=== PATIENT | male | born 1965 | race Caucasian/White ===

== ENCOUNTER 2017-05-04 19:19 | Emergency (ER) | payer SELFPAY ==
[2017-05-04 19:38] VITALS: RESP 18
[2017-05-04] MEDS ORDERED: TROPICAMIDE 0.5% LEFTEYE ONE (19:51)
--- NOTE | 2017-05-04 19:55 | EDPHY ---
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 Patient states he did not have a loss of vision but everything from the mid point of seemed distorted. Does not have a history of the same. He has had what he is status were migraine orders in the past or not similar to this. Never been diagnosed with migraine headaches. No nausea or vomiting. No trauma. Patient states he feels it is improving. No pain. Patient is normal in his lower visual field. ROS: 10 point Review of Systems is negative except as noted in the HPI. PMH: Ocular melanoma Social History: No smoking, no alcohol, occasional marijuana Family History: non-contributory Physical Exam: Eye Exam Visual Acuity: 20/20 left eye EOM: Intact Visual Lee: Intact OU, he has able to differentiate did number fingers in all visual lee Pupil: Equal, round and reactive to light and accomodation OU External: Lids, lashes and margins normal OU Fundoscopy; Normal OU - Personal History Current Tetanus/Diphtheria Vaccine: Unsure Current Tetanus Diphtheria and Acellular Pertussis (TDAP): Unsure - Medical/Surgical History Hx Asthma: No Hx Chronic Respiratory Disease: No Hx Diabetes: No Hx Cardiac Disease: No Hx Renal Disease: No Hx Cirrhosis: No Hx Alcoholism: No Hx HIV/AIDS: No Hx Splenectomy or Spleen Trauma: No 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 Nicholas Carlin, ophthalmology. He agrees that history and exam findings are not consistent with retinal detachment. Given that the patient's symptoms are improving and that he still has vision although distorted in that eye is no indication for an emergency treatment. He is suggest the patient be discharged home. If he has improved in the morning he will follow up in the office in several days. If his vision changes or he is still having symptoms tomorrow patient is to call Dr. Carlin directly and they will arrange to see him in the office. - Data Points Medications Given: Discontinued Medications Tropicamide (Mydriacyl 0.5%) 1 drops LEFTEYE ONCE ONE Stop: 05/04/17 19:52 Last Admin: 05/04/17 19:53 Dose: 1 btl Departure - Departure Disposition: Home, Routine, Self-Care Clinical Impression: Vision abnormalities Condition: Good Instructions: Blurred Vision (ED) Additional Instructions: If you're still having abnormalities in your vision tomorrow called Dr. Nicholas Carlin, . He was seen in the office in the next day or 2. If symptoms are improved follow up with Dr. Carlin in the next several days. Referrals: NONE *PRIMARY CARE P,. [Primary Care Provider] - As per Instructions Nicholas Carlin MD [Medical Doctor] - As per Instructions
[2017-05-04 21:16] VITALS: BP 141/74; PULSE 71; TEMP 98.1; O2SAT 98
== END 2017-05-04 21:16 | disposition home or self-care (01) ==
DX: H53.9 Unspecified visual disturbance (principal); Z85.840 Personal history of malignant neoplasm of eye

== ENCOUNTER → 2017-06-07 | Outpatient (CLI) | payer MEDICAID | LOC: CIMAGING 15:16 | DX: I65.23 Occlusion and stenosis of bilateral carotid arteries (principal) | CPT/HCPCS: 93880-PO ==

== ENCOUNTER 2017-07-02 22:44 | Emergency (ER) | payer MEDICAID ==
[2017-07-02 22:52] VITALS: RESP 16; TEMP 97.9
--- NOTE | 2017-07-02 23:03 | EDPHY ---
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 He is blind in his right eye. He reports to me that he was reading a book in noticed some holes in the page when he was reading. He denies loss of vision. Denies blackness. Denies eye pain, denies double vision, denies curtain coming down, denies chest pain shortness of breath. Patient reports to me that he has had this sensation of "holes" in the page, and "stars in his vision" many many times he states over the last 20 years ago remembered happening multiple times a year. He always thought that it was possibly an ocular migraine. He does sometimes get a left-sided headache with this. He does have that tonight. Describes extremely mild left-sided. 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 He additionally reports that he has had most of his workup for this including carotid ultrasound and blood work. He is due to still have an echocardiogram which he has not obtained yet. He decided come to the emergency room out of caution. He states this feels exactly like his previous "ocular migraines "however due to the recent development of a retinal stroke which is symptoms last time were worse with a curtain coming down he decided come in for evaluation. Here in the emergency room I did evaluate him he appears well nontoxic is somewhat noted to be hypertensive when he arrived. He does appear anxious. Is visual acuity is normal. His visual lee are intact of his left eye. I do not appreciate acute abnormality of his left eye. I will consult Ophthalmology for further recommendations. Past Medical History: Ocular melanoma. Past Surgical History: No recent surgery Social History: Lives locally, denies drugs alcohol tobacco. Family History: Noncontributory ROS REVIEW OF SYSTEMS: A comprehensive 10 point review of systems is otherwise negative aside from elements mentioned in the history of present illness. Exam Constitutional triage nursing summary reviewed, vital signs reviewed, awake/ alert. Eyes normal conjunctivae and sclera, EOMI, PERRLA. Right EYE: Blind. Left EYE : Extraocular movements intact, pupil equal round react to light, posterior eye exam without dilatation is unremarkable, I appreciate what I believed to be a normal optic nerve, globe is soft, visual lee are tested of his left eye are intact, anterior chamber looks a normal. I do not see a flare. HENT normal inspection, atraumatic, moist mucus membranes, no epistaxis, neck supple/ no meningismus, no raccoon eyes. Respiratory clear to auscultation bilaterally, normal breath sounds, no respiratory distress, no wheezing. Cardiovascular rate normal, regular rhythm, no murmur, no edema, distal pulses normal. Gastrointestinal soft, non-tender, no rebound, no guarding, normal bowel sounds, no distension, no pulsatile mass. Genitourinary no CVA tenderness. Musculoskeletal no midline vertebral tenderness, full range of motion, no calf swelling, no tenderness of extremities, no meningismus, good pulses, neurovascularly intact. Skin pink, warm, & dry, no rash, skin atraumatic. Neurologic awake, alert and oriented x 3, AAOx3, moves all 4 extremities equally, motor intact, sensory intact, CN II-XII intact, normal cerebellar, normal vision, normal speech. Psychiatric normal mood/affect. Heme/Lymph/Immune no lymphadenopathy. Differential Diagnosis: Includes but is not limited to in a particular order ocular migraine, retinal detachment, glaucoma, retinal stroke Medical Decision Making: Plan for this patient I will consult Ophthalmology patient is eye exam here in the emergency room is unremarkable for me. Re-evaluation: 230: Visual acuity 20/20 left eye. Blind out of right eye. 2342: Spoke with Dr. Fuller, Ophthalmology. He thinks is an ocular migraine. The be glad to see him in the office. Does not feel that this is a retinal detachment or retinal stroke. Recommend close follow-up with him in the office tomorrow. 2358: I have discussed this with the patient. He is comfortable this plan. Will go home. He does understand tonight if he gets worsening vision disturbance or loss of vision needs to return to the emergency room. Source: Patient - Medical/Surgical History Hx Asthma: No Hx Chronic Respiratory Disease: No Hx Diabetes: No Hx Cardiac Disease: No Hx Renal Disease: No Hx Cirrhosis: No Hx Alcoholism: No Hx HIV/AIDS: No Hx Splenectomy or Spleen Trauma: No Other PMH: Occular Melanoma and Blindness - Right Eye, migraines, stroke, vasectomy - Social History Smoking Status: Former smoker Constitutional: Initial Vital Signs Temperature (C) 36.6 C 07/02/17 22:48 Heart Rate 77 07/02/17 22:48 Respiratory Rate 16 07/02/17 22:48 Blood Pressure 164/107 H 07/02/17 22:48 O2 Sat (%) 98 07/02/17 22:48 O2 Delivery Mode Room Air Allergies/Adverse Reactions: No Known Allergies Allergy (Verified 07/02/17 22:53) Home Medications: Medication Instructions Recorded NK [No Known Home Meds] 05/04/17 Departure - Departure Disposition: Home, Routine, Self-Care Clinical Impression: Visual disturbance Condition: Good Instructions: Blurred Vision (ED) Additional Instructions: 1. Return emergency room if he develops worsening symptoms questions or concerns. 2. Follow up with Ophthalmology tomorrow. Please call their for an appointment. Referrals: NONE *PRIMARY CARE P,. [Primary Care Provider] - As per Instructions Gee Fuller MD [Medical Doctor] - As per Instructions
[2017-07-03 00:13] VITALS: BP 149/115; PULSE 74; O2SAT 95
== END 2017-07-03 00:11 | disposition home or self-care (01) ==
DX: H53.9 Unspecified visual disturbance (principal); Z87.891 Personal history of nicotine dependence

== ENCOUNTER 2017-07-31 07:12 | Inpatient (IN) | payer MEDICAID ==
[2017-07-31] MEDS ORDERED: FAMOTIDINE 20 MG TAB PO ONE (07:17)
[2017-07-31] MEDS ORDERED: diphenhydrAMINE 25 MG CAP PO ONE (07:17)
[2017-07-31] MEDS ORDERED: ASPIRIN EC 325 MG TAB PO ONE (07:17)
[2017-07-31] MEDS ORDERED: DIAZEPAM 5 MG TAB PO ONE (07:17)
[2017-07-31] MEDS ORDERED: NS 1,000 ML IV ONE (07:17)
--- NOTE | 2017-07-31 07:54 | CPEKG ---
Heart Rate: 84 RR Interval: 714 P-R Interval: 144 QRSD Interval: 86 QT Interval: 364 QTC Interval: 431 P Foster: 47 QRS Foster: 17 T Wave Foster: 66 EKG Severity - BORDERLINE ECG - EKG Impression: SINUS RHYTHM EKG Impression: BORDERLINE T WAVE ABNORMALITIES Electronically Signed By: Christopher Pearce 04-Aug-2017 10:45:49
[2017-07-31 08:01] LABS: PLATELET COUNT 202 10^3/uL (150-400)
[2017-07-31 08:23] LABS: PROTIME(PATIENT) 13.4 SEC (12.0-15.0)
[2017-07-31] MEDS ORDERED: LIDOCAINE 1% 300 MG/30 ML SDV ONE (09:12)
[2017-07-31] MEDS ORDERED: HEPARIN 10,000 UNIT/10 ML MDV (1,000 UNIT/ML) ONE (09:12)
[2017-07-31] MEDS ORDERED: fentaNYL 100 MCG/2 ML INJ ONE (09:12)
[2017-07-31] MEDS ORDERED: MIDAZOLAM 2 MG/2 ML VIAL ONE ×3 (09:12→18:52)
[2017-07-31] MEDS ORDERED: VERAPAMIL 5 MG/2 ML VIAL ONE (09:12)
[2017-07-31] MEDS ORDERED: IOPAMIDOL (ISOVUE-370) 150 ML BTL IV ONE (09:12)
--- NOTE | 2017-07-31 10:21 | PDDXCAT ---
Diagnostic Cath Note - . Date: 07/31/17 Staffing Branch Manager: Gil Indication: other (Preoperative CATH for AVR.) - Procedure Access: right groin Procedure: coronary angiography, other (groin access) - Materials Left Heart Cath materials: JL4.5, JR4.0 - Findings-Left Heart Catheterization LM: Normal. LAD: Normal. LCX: Normal. RCA: Normal. EDP: LHC was not performed. Complications: None. Closure method: manual pressure Assessment: Critical aortic stenosis. Normal coronary arteries. Plan: Surgical AVR. Intervention: None.
[2017-07-31] MEDS ORDERED: IOPAMIDOL (ISOVUE-300) 100 ML BTL ONE (14:24)
--- NOTE | 2017-07-31 16:58 | SOAPPROG ---
SOAP Progress Note Assessment/Plan: s: Asked to consult on this 52 yo M admitted to Cardiac surgery for aortic valve replacement. Evaluation showed poor dentition, asked to evaluate for potential source of infection in dentition. exam: Teeth # 3, 19 decay and fx at gumline, # 5 missing. No LAD or evidence of abscesses. A/p #3, 19 , potentially #5 potential source of infection preop aortic valve replacement 1_ plan to take to OR for extraction of #3, and [address] scan to show if root structures in #5 are present. NPO for now, plan to take to OR for ext under LA and potential mac sedation. Plan: 07/31/17 16:54 Objective: Vital Signs Temp Pulse Resp BP Pulse Ox 14 127/87 H 94 07/31/17 16:35 07/31/17 16:30 07/31/17 16:35 Laboratory Results 07/31/17 07:45 07/31/17 07:45 07/30/17 07/31/17 08/01/17 05:59 05:59 05:59 Intake Total 500 Balance 500 PT 13.4 SEC (12.0-15.0) 07/31/17 07:45 INR 1.00 (0.83-1.16) 07/31/17 07:45 ICD10 Worksheet Patient Problems: Problems Problem Status Onset Caries involving multiple surfaces of tooth Acute - ICD10 Problem Qualifiers (1) Caries involving multiple surfaces of tooth
[2017-07-31] MEDS ORDERED: BUPIVACAINE 0.25% 30 ML SDV ONE (18:19)
[2017-07-31] MEDS ORDERED: LIDO/EPI 2%** Not for Epidural 20 ML MDV ONE (18:20)
[2017-07-31] MEDS ORDERED: CHLORHEXIDINE GLUCONATE 15 ML UDL ONE (18:20)
--- NOTE | 2017-07-31 18:23 | PDANEPAE ---
ANE History of Present Illness Tooth extraction ANE Past Medical History - Cardiovascular History Hx Hypertension: No Hx Arrhythmias: No Hx Chest Pain: No Hx Coronary Artery / Peripheral Vascular Disease: Yes Hx CHF / Valvular Disease: No Hx Palpitations: No Cardiovascular History Comment: Aortic Valve stenosis - Pulmonary History Hx COPD: No Hx Asthma/Reactive Airway Disease: No Hx Recent Upper Respiratory Infection: No Hx Oxygen in Use at Home: No Hx Sleep Apnea: No Sleep Apnea Screening Result - Last Documented: Positive - Neurologic History Hx Cerebrovascular Accident: No Hx Seizures: No Hx Dementia: No - Endocrine History Hx Diabetes: No - Renal History Hx Renal Disorders: No - Liver History Hx Hepatic Disorders: No - Neurological & Psychiatric Hx Hx Neurological and Psychiatric Disorders: No - Cancer History Cancer History Comment: Ocular melanoma - Congenital Disorder History Hx Congenital Disorders: No - GI History Hx Gastrointestinal Disorders: Yes Gastrointestinal History Comment: Acid reflux rare - Other Health History Other Health History: Ocular melanoma. blood clot in eye - Surgical History Prior Surgeries: vasectomy. R eye sx (tumor markers placed, radiation) ANE Review of Systems Review of Systems: - Exercise capacity METS (RN): 3 METS ANE Patient History - Allergies Allergies/Adverse Reactions: No Known Allergies Allergy (Verified 07/30/17 17:05) - Home Medications Home medications: home medication list seen and reviewed Home Medications: Aspirin [Aspirin 81mg (*)] 81 mg PO HS 07/30/17 [Last Taken 07/30/17] Atorvastatin Calcium [Lipitor 40 mg (*)] 40 mg PO HS 07/30/17 [Last Taken ] Herbals/Supplements -Info Only 1 ea PO DAILY 07/30/17 [Last Taken 1 Week Ago ~] Vitamin B Complex [B Complex] 1 each PO DAILY 07/30/17 [Last Taken 1 Week Ago ~ 07/24/17] - NPO status NPO Status: no food or drink >8 hours NPO Since - Liquids (Date): 07/31/17 NPO Since - Liquids (Time): 00:00 NPO Since - Solids (Date): 07/31/17 NPO Since - Solids (Time): 00:00 - Anes Hx Anes Hx: no prior problems - Smoking Hx Smoking Status: Former smoker - Family Anes Hx Family Anes Hx: none Family Hx Anesthesia Complications: none ANE Labs/Vital Signs - Labs Result Diagrams: 07/31/17 07:45 07/31/17 07:45 - Vital Signs Blood Pressure: 141/95 Heart Rate: 60 Respiratory Rate: 16 O2 Sat (%): 95 Height: 177.8 cm Weight: 77.111 kg ANE Physical Exam - Airway Neck exam: FROM Mallampati Score: Class 1 Mouth exam: poor dentition - Pulmonary Pulmonary: no respiratory distress - Cardiovascular Cardiovascular: regular rate and rhythym - ASA Status ASA Status: IV ANE Anesthesia Plan Anesthesia Plan: MAC
[2017-07-31] MEDS ORDERED: KETAMINE 200 MG/20 ML VIAL ONE (18:39)
--- NOTE | 2017-07-31 18:39 | PDHPUP ---
History & Physical Update H&P update statement: This history and physical update is based on an assessment of the patient which was completed after admission or registration (within 24 hours), but prior to the surgery/procedure. H&P update: H&P reviewed & patient examined
[2017-07-31] MEDS ORDERED: ceFAZolin 1 GM VIAL ONE ×2 (18:44)
[2017-07-31] MEDS ORDERED: morphINE PCA 30 MG/30 ML PCA IV PRN (19:19)
--- NOTE | 2017-07-31 19:22 | SOAPPROG ---
SOAP Progress Note Assessment/Plan: taken to OR for extraction of # 3, 5, 19 under MAC sedation, no evidence of acute abscess noted. See dictation for details. Follow up PRN 07/31/17 19:21 Objective: Vital Signs Temp Pulse Resp BP Pulse Ox 36.5 C 60 16 141/95 H 95 07/31/17 17:09 07/31/17 18:32 07/31/17 18:32 07/31/17 18:32 07/31/17 18:32 Laboratory Results 07/31/17 07:45 07/31/17 07:45 07/30/17 07/31/17 08/01/17 05:59 05:59 05:59 Intake Total 500 Balance 500 PT 13.4 SEC (12.0-15.0) 07/31/17 07:45 INR 1.00 (0.83-1.16) 07/31/17 07:45 ICD10 Worksheet Patient Problems: Problems Problem Status Onset Caries involving multiple surfaces of tooth Acute - ICD10 Problem Qualifiers (1) Caries involving multiple surfaces of tooth
[2017-07-31] MEDS ORDERED: ACETAMINOPHEN 500 MG TAB PO PRN (19:23)
[2017-07-31] MEDS ORDERED: HYDROCODONE/APAP 5/325 TAB PO PRN (19:23)
[2017-07-31] MEDS ORDERED: fentaNYL 100 MCG/2 ML INJ IVP PRN (19:23)
[2017-07-31] MEDS ORDERED: OXYCODONE/APAP 5/325 TAB PO PRN (19:23)
[2017-07-31] MEDS ORDERED: DEXAMETHASONE 4 MG/ML VIAL IVP PRN (19:23)
[2017-07-31] MEDS ORDERED: ONDANSETRON 4 MG/2 ML VIAL IVP PRN (19:23)
[2017-07-31] MEDS ORDERED: PHENYLEPHRINE HCL 100 MCG/ML SYR IVP PRN (19:23)
[2017-07-31] MEDS ORDERED: NALOXONE HCL 0.4 MG/ML INJ IVP PRN (19:23)
--- NOTE | 2017-07-31 19:23 | POSTANESTH ---
Post Anesthetic Evaluation Cardiovascular Status: Similar to Pre-Op Cond Respiratory Status: Normal, Stable, Similar to Pre-op Cond. Level of Consciousness/Mental Status: Can Participate in Eval, Mildly Sleepy, Arousable Pain Control: Adequate, Prn Tx Ordered Nausea/Vomiting Control: Adequate, Prn Tx Ordered Complications Possibly Related to Anesthesia: None Noted
[2017-07-31] MEDS ORDERED: KETOROLAC 30 MG/1 ML SDV IVP PRN (20:11)
[2017-07-31] MEDS ORDERED: LACTULOSE 20 GM/30 ML UDCUP PO PRN (20:12)
[2017-07-31] MEDS ORDERED: MAGNESIUM HYDROXIDE 30 ML UDCUP PO PRN (20:12)
[2017-07-31] MEDS ORDERED: BISACODYL 10 MG SUPP PR PRN (20:12)
[2017-07-31] MEDS ORDERED: POLYETHYLENE GLYCOL 3350 17 GM PKT PO PRN (20:12)
[2017-07-31] MEDS ORDERED: CHLORHEXIDINE GLUC HIBICLENS 118 ML BTL TP SCH (21:00)
[2017-07-31] MEDS: SENNOSIDES/DOCUSATE SODIUM TAB PO SCH (21:32)
[2017-08-01] MEDS ORDERED: CITRATE DEXTROSE SOLN 500 ML BAG MISC ONE (06:00)
[2017-08-01] MEDS ORDERED: TRANEXAMIC ACID 1,000 MG in NS 100 ML IV ONE (06:00)
[2017-08-01] MEDS ORDERED: INSULIN REGULAR HUMAN 100 UNIT in NS 100 ML IV ONE (06:00)
[2017-08-01] MEDS ORDERED: niCARdipine/NACL 200 ML IV SCH (06:00)
[2017-08-01] MEDS ORDERED: MANNITOL 25% 12.5 GM/50 ML VIAL IVP ONE (06:00)
[2017-08-01] MEDS ORDERED: ceFAZolin 2 GM/SWFI 2 GM/20 ML SYR IVP ONE (06:00)
[2017-08-01] MEDS ORDERED: NOREPINEPHRINE BITARTRATE 16 MG in NS 250 ML IV ONE (06:00)
[2017-08-01] MEDS ORDERED: PHENYLEPHRINE HCL 50 MG in NS 250 ML IV ONE (06:00)
[2017-08-01] MEDS ORDERED: MUPIROCIN 2% 22 GM OINT NS ONE ×2 (06:00→08:15)
[2017-08-01] MEDS ORDERED: SODIUM BICARBONATE 20 MEQ, LIDOCAINE 1% 10 ML in NORMOSOL-R 1,000 ML MISC ONE (06:00)
--- NOTE | 2017-08-01 06:57 | PDHPUP ---
History & Physical Update H&P update statement: This history and physical update is based on an assessment of the patient which was completed after admission or registration (within 24 hours), but prior to the surgery/procedure. H&P update: H&P reviewed & patient examined H&P changes: 3 teeth removed
[2017-08-01] MEDS ORDERED: PROPOFOL 200 MG/20 ML VIAL ONE (07:38)
[2017-08-01] MEDS ORDERED: fentaNYL 250 MCG/5 ML INJ ONE ×2 (07:38)
[2017-08-01] MEDS ORDERED: PHENYLEPHRINE 10 MG/ML SDV ONE (07:39)
[2017-08-01] MEDS ORDERED: ROCURONIUM 100 MG/10 ML VIAL ONE (07:39)
[2017-08-01] MEDS ORDERED: LIDOCAINE 2% 5 ML SDV ONE (07:40)
[2017-08-01] MEDS ORDERED: LR 1,000 ML IV ONE (07:54)
[2017-08-01] MEDS ORDERED: MIDAZOLAM 2 MG/2 ML VIAL IVP ONE (07:55)
--- NOTE | 2017-08-01 08:04 | PDANEPAE ---
ANE History of Present Illness avr ANE Past Medical History - Cardiovascular History Hx Hypertension: No Hx Arrhythmias: No Hx Chest Pain: No Hx Coronary Artery / Peripheral Vascular Disease: Yes Hx CHF / Valvular Disease: Yes Hx Palpitations: No Cardiovascular History Comment: Aortic Valve stenosis - Pulmonary History Hx COPD: No Hx Asthma/Reactive Airway Disease: No Hx Recent Upper Respiratory Infection: No Hx Oxygen in Use at Home: No Hx Sleep Apnea: No Sleep Apnea Screening Result - Last Documented: Positive - Neurologic History Hx Cerebrovascular Accident: No Hx Seizures: No Hx Dementia: No - Endocrine History Hx Diabetes: No - Renal History Hx Renal Disorders: No - Liver History Hx Hepatic Disorders: No - Neurological & Psychiatric Hx Hx Neurological and Psychiatric Disorders: No - Cancer History Cancer History Comment: Ocular melanoma - Congenital Disorder History Hx Congenital Disorders: No - GI History Hx Gastrointestinal Disorders: Yes Gastrointestinal History Comment: Acid reflux rare - Other Health History Other Health History: Ocular melanoma. blood clot in eye - Surgical History Prior Surgeries: vasectomy. R eye sx (tumor markers placed, radiation) ANE Review of Systems Review of Systems: - Exercise capacity METS (RN): 3 METS ANE Patient History - Allergies Allergies/Adverse Reactions: No Known Allergies Allergy (Verified 07/30/17 17:05) - Home Medications Home Medications: Aspirin [Aspirin 81mg (*)] 81 mg PO HS 07/30/17 [Last Taken 07/30/17] Atorvastatin Calcium [Lipitor 40 mg (*)] 40 mg PO HS 07/30/17 [Last Taken ] Herbals/Supplements -Info Only 1 ea PO DAILY 07/30/17 [Last Taken 1 Week Ago ~] Vitamin B Complex [B Complex] 1 each PO DAILY 07/30/17 [Last Taken 1 Week Ago ~ 07/24/17] - NPO status NPO Since - Liquids (Date): 08/01/17 NPO Since - Liquids (Time): 00:00 NPO Since - Solids (Date): 08/01/17 NPO Since - Solids (Time): 00:00 - Anes Hx Anes Hx: no prior problems - Smoking Hx Smoking Status: Former smoker - Family Anes Hx Family Hx Anesthesia Complications: none ANE Labs/Vital Signs - Labs Result Diagrams: 07/31/17 07:45 07/31/17 07:45 - Vital Signs Blood Pressure: 118/80 Heart Rate: 103 Respiratory Rate: 16 O2 Sat (%): 95 Height: 177.8 cm Weight: 73 kg ANE Physical Exam - Airway Mallampati Score: Class 2 Mouth exam: poor dentition - Pulmonary Pulmonary: no respiratory distress - Cardiovascular Cardiovascular: regular rate and rhythym - ASA Status ASA Status: III ANE Anesthesia Plan Anesthesia Plan: general endotracheal anesthesia Lines/Monitors: arterial line, central line, KRISTEN
[2017-08-01] MEDS ORDERED: CALCIUM CHLORIDE 1 GM/10 ML INJ ONE ×3 (08:18→12:00)
[2017-08-01] MEDS ORDERED: NA BICARBONATE 50 MEQ/50 ML VIAL ONE (08:18)
[2017-08-01] MEDS ORDERED: PROTAMINE SULFATE 50 MG/5 ML VIAL IVP ONE (08:18)
[2017-08-01] MEDS ORDERED: MILRINONE/DEXTROSE/100 ML BAG IV ONE (08:18)
[2017-08-01] MEDS ORDERED: DOPamine/DEXTROSE/250 ML BAG IV ONE (08:19)
[2017-08-01] MEDS ORDERED: HEPARIN 10,000 UNIT/10 ML MDV (1,000 UNIT/ML) ONE ×2 (08:19→08:22)
[2017-08-01] MEDS ORDERED: niCARdipine/NACL/200 ML BAG IV ONE (08:19)
[2017-08-01] MEDS ORDERED: ADENOSINE 6 MG/2 ML VIAL ONE (08:20)
[2017-08-01] MEDS ORDERED: ceFAZolin 1 GM VIAL ONE (08:20)
[2017-08-01] MEDS ORDERED: AMIODARONE HCL 150 MG/3 ML VIAL ONE ×2 (08:20→08:22)
[2017-08-01] MEDS ORDERED: LIDOCAINE 2% 100 MG/5 ML SYR ONE (08:21)
[2017-08-01] MEDS ORDERED: ALBUMIN 5% 250 ML BOTTLE IV ONE ×3 (08:21→11:30)
[2017-08-01] MEDS ORDERED: MAGNESIUM SULFATE 1 GM/2 ML VIAL ONE (08:22)
[2017-08-01] MEDS ORDERED: methylPREDNISolone SOD SUCC 1 GM/8 ML VIAL ONE (08:22)
[2017-08-01] MEDS ORDERED: CITRATE DEXTROSE SOLN 500 ML BAG ONE ×2 (08:22→09:27)
[2017-08-01] MEDS ORDERED: LABETALOL HCL 5 MG/ML 20 ML MDV ONE (09:22)
[2017-08-01] MEDS ORDERED: GLYCOPYRROLATE 0.2 MG/1 ML VIAL ONE (09:31)
[2017-08-01] MEDS ORDERED: D50W 25 GM/50 ML VIAL ONE (09:56)
[2017-08-01] MEDS ORDERED: MIDAZOLAM 2 MG/2 ML VIAL ONE (10:08)
[2017-08-01] MEDS ORDERED: MINERAL OIL 10 ML VIAL ONE (10:43)
[2017-08-01] MEDS ORDERED: MAGNESIUM SULF 2 GM/WATER 50 ML BAG IV ONE (11:31)
[2017-08-01] MEDS: SENNOSIDES/DOCUSATE SODIUM TAB PO SCH ×2 (12:06→21:47)
[2017-08-01] MEDS ORDERED: fentaNYL 100 MCG/2 ML INJ IVP PRN (12:18)
[2017-08-01] MEDS ORDERED: D50W 25 GM/50 ML SYR IVP PRN (12:18)
[2017-08-01] MEDS ORDERED: PANTOPRAZOLE SODIUM 40 MG VIAL IVP ONE (12:18)
[2017-08-01] MEDS ORDERED: ONDANSETRON 4 MG/2 ML VIAL IVP PRN (12:18)
[2017-08-01] MEDS ORDERED: HYDROCODONE/APAP 5/325 TAB PO PRN (12:18)
[2017-08-01] MEDS ORDERED: ACETAMINOPHEN 650 MG SUPP PR PRN (12:18)
[2017-08-01] MEDS ORDERED: MAGNESIUM SULF 2 GM/WATER 50 ML IV ONE (12:18)
[2017-08-01] MEDS ORDERED: SODIUM CL NASAL 45 ML BTL EACHNARE PRN (12:18)
[2017-08-01] MEDS ORDERED: CEPACOL LOZENGE PO PRN (12:18)
[2017-08-01] MEDS ORDERED: MEPERIDINE 25 MG/ML SYR IVP PRN (12:18)
[2017-08-01] MEDS ORDERED: ONDANSETRON DISINTEGRATING 4 MG TAB PO PRN (12:18)
[2017-08-01] MEDS ORDERED: METOCLOPRAMIDE 10 MG/2 ML VIAL IVP PRN (12:18)
[2017-08-01] MEDS ORDERED: INSULIN REGULAR HUMAN 100 UNIT in NS 100 ML IV SCH (12:30)
[2017-08-01] MEDS ORDERED: NS 1,000 ML IV SCH (12:30)
[2017-08-01] MEDS ORDERED: NALOXONE HCL 0.4 MG/ML INJ IVP PRN (12:44)
--- NOTE | 2017-08-01 12:44 | POSTANESTH ---
Post Anesthetic Evaluation Cardiovascular Status: Normal, Stable Respiratory Status: Normal, Stable Level of Consciousness/Mental Status: Can Participate in Eval Pain Control: Adequate, Prn Tx Ordered Nausea/Vomiting Control: Adequate, Prn Tx Ordered Complications Possibly Related to Anesthesia: None Noted
[2017-08-01] MEDS: KETOROLAC 30 MG/1 ML SDV IVP SCH ×3 (13:06→23:47)
[2017-08-01] MEDS: ALBUMIN 5% 250 ML IV PRN ×3 (13:08→15:30)
--- NOTE | 2017-08-01 13:11 | GOP ---
[f rep st] OPERATIVE REPORT Corrected report DATE OF OPERATION: 08/01/2017 SURGEON: Yuniel Pedroza DO [employer] OPERATOR: Papito Traylor PA-C. ANESTHESIA: Fahad Posada MD. PREOPERATIVE DIAGNOSIS: 1. Critical aortic stenosis. 2. Hypertensive obstructive cardiomyopathy. 3. Mitral valve restriction due to calcification. POSTOPERATIVE DIAGNOSIS: 1. Critical aortic stenosis. 2. Hypertensive obstructive cardiomyopathy. 3. Mitral valve restriction due to calcification ingrowth. PROCEDURE PERFORMED: 1. Aortic valve replacement with a 23 Magna bioprosthesis. 2. Extensive debridement of the anterior leaflet of the mitral valve. 3. Septal myectomy. FINDINGS: Patient was noted to have severe critical aortic stenosis with a recent embolic event to the retina felt to be due to calcium. He was found to have critical aortic stenosis with a mean gradient approaching 100 mmHg. He was consented for surgery. He was noted to have some chordal MICHAEL without mitral regurg preoperatively, at most 1+ mitral regurg. He was also noted to have a 3.8 cm ascending aorta and marked restriction of his anterior leaflet due to calcium ingrowth. DESCRIPTION OF PROCEDURE: He was consented for surgery, brought to the operating room intubated. Monitoring lines were placed. He was noted to have severe left ventricular hypertrophy on echo circumferentially as well as in the septum. His sternotomy was performed. He was heparinized, cannulated with bicaval cannulas. Cardiopulmonary bypass was begun. A cardioplegic arrest was obtained with antegrade cardioplegia, retrograde cardioplegia, topical hypothermia, and systemic cooling. An LV vent was placed through the right superior pulmonary vein. As noted on echo he had marked left ventricular hypertrophy with a small chamber. After cardiac arrest, left atrial appendage was ligated with a left atrial AtriClip. We then proceeded with opening the aorta with transverse aortotomy. Exposure of the aortic valve was easily obtained. We then spent a great deal of time decalcifying and removing heavily calcified bulky aortic valve, which had extensive calcification down onto the very tip of the anterior mitral leaflet approximately 1.5 cm wide and protruding 1.5 cm into the outflow tract. A great deal of time was spent debriding this, preserving the anterior leaf of the mitral valve, particularly given the fact that he had had embolization of calcium to his eye. The anulus was extensively debrided as well. It extended down into the interventricular septum, which was also debrided, avoiding the conduction system. After removing the valve and calcium, I then excised a standard 1 x 2 x 4 cm segment of muscle starting a centimeter below the aortic valve, extending toward the base of the papillary muscle, to help alleviate any outflow tract obstruction. Again, he had circumferential hypertrophy and this was performed just to maximize his outflow tract in case he developed future issues. The LV chamber was copiously irrigated. A 23 mm Murcia valve was sutured in a supra-annular position with interrupted 2-0 Tycron pledgeted mattress sutures. The aortotomy was closed in standard fashion. The patient was placed in Trendelenburg. The cross-clamp was removed with suction on the ascending aortic vent and LV sump as well as intermittent aspirations to the LV apex until no further air was identified. He then was easily weaned from bypass. Heparin was reversed with protamine. The echo revealed good valvular function of the aortic valve, trace mitral insufficiency with normal functioning anterior leaflet, and no evidence of MICHAEL. Four pacing wires, 1 right pleural and 1 mediastinal drain were placed. The thymic fat and pericardium were closed. The chest was closed in standard fashion. The patient was extubated in the operating room, returned to ICU in stable condition. /[id number]/MODL Chevy acc#, 08/02/17, sacha MCCLENDON
[2017-08-01] MEDS: ceFAZolin 2 GM/DEXTROSE 100 ML IV SCH ×2 (13:32→22:06)
[2017-08-01] MEDS ORDERED: AMIODARONE A.FIB-LOAD DOSE(ORDER 1/3) PREMIX IV ONE (15:30)
[2017-08-01] MEDS ORDERED: AMIODARONE A.FIB-6HR INFSN (ORDER 2/3) PREMIX IV ONE (15:30)
[2017-08-01] MEDS: POTASSIUM Cl (KCl) 50 ML IV PRN (17:21)
[2017-08-01] MEDS ORDERED: SODIUM BICARBONATE 50 MEQ/50 ML SYR ONE (17:21)
[2017-08-01] MEDS ORDERED: SODIUM BICARBONATE 50 MEQ/50 ML SYR IVP ONE (17:30)
[2017-08-01] MEDS: MUPIROCIN 2% 22 GM OINT NS SCH (21:39)
[2017-08-01] MEDS ORDERED: AMIODARONE A.FIB-18HR INFSN (ORDER 3/3) IV ONE (22:00)
[2017-08-02] MEDS: POTASSIUM Cl (KCl) 50 ML IV PRN ×3 (00:19→03:05)
[2017-08-02 05:18] LABS: PLATELET COUNT 88 10^3/uL (150-400)
[2017-08-02] MEDS: ceFAZolin 2 GM/DEXTROSE 100 ML IV SCH (05:23)
[2017-08-02] MEDS: KETOROLAC 30 MG/1 ML SDV IVP SCH ×4 (05:25→22:57)
[2017-08-02] MEDS: HEPARIN 5,000 UNIT/0.5 ML SYR SC SCH ×3 (05:33→22:58)
--- NOTE | 2017-08-02 06:46 | SOAPPROG ---
SOAP Progress Note Assessment/Plan: POD #1: AVR with #23 Magna bioprosthesis, septal myectomy, debridement of MV, AtriClip YASMANI Critical s/p AVR with bioprosthesis - FC/AL out, CTs to bulb suction - BB when appropraite - SCDs/heparin SC for DVT prophylaxis - PT/OT HOCM s/p septal myectomy - Stable Calcified MV s/p debridement - Stable Acute blood loss anemia - No need for blood product transfusions Paroxysmal post-op atrial fibrillation - Continue amiodarone - Coumadin for thromboprophylaxis - Beta-clara when better BP Subjective: Doing better than yesterday. Denies pain/SOB. Objective: Vital Signs Temp Pulse Resp BP Pulse Ox 37.4 C 96 26 H 105/66 96 08/02/17 05:00 08/02/17 06:23 08/02/17 06:23 08/02/17 06:23 08/02/17 06:23 Laboratory Results 08/02/17 05:05 08/02/17 05:05 08/01/17 08/02/17 08/03/17 05:59 05:59 05:59 Intake Total 1300 3211.2 Output Total 5 2240 Balance 1295 971.2 PT 13.4 SEC (12.0-15.0) 07/31/17 07:45 INR 1.00 (0.83-1.16) 07/31/17 07:45 Physical Exam - Physical Exam General Appearance: WD/WN, alert, no apparent distress EENT: No scleral icterus (R), No scleral icterus (L) Neck: normal inspection Respiratory: No respiratory distress Cardiac/Chest: irregularly irregular Abdomen: non-tender, soft, No distended Skin: normal color, warm/dry Extremities: No pedal edema Neuro/Psych: no motor/sensory deficits, alert, normal mood/affect, oriented x 3 ICD10 Worksheet Patient Problems: Problems Problem Status Onset Acute blood loss as cause of postoperative anemia Acute Aortic stenosis Acute Caries involving multiple surfaces of tooth Acute HOCM (hypertrophic obstructive cardiomyopathy) Acute S/P AVR (aortic valve replacement) Acute S/P ventricular septal myectomy Acute
[2017-08-02] MEDS: SENNOSIDES/DOCUSATE SODIUM TAB PO SCH ×2 (07:45→19:48)
[2017-08-02] MEDS: PANTOPRAZOLE SODIUM 40 MG TAB PO SCH (07:45)
[2017-08-02] MEDS: AMIODARONE HCL 200 MG TAB PO SCH ×2 (10:23→19:48)
[2017-08-02] MEDS: MUPIROCIN 2% 22 GM OINT NS SCH ×2 (10:23→19:48)
[2017-08-02] MEDS ORDERED: WARFARIN SODIUM 5 MG TAB PO ONE (16:00)
[2017-08-02] MEDS: ASPIRIN 81 MG CHEWABLE TAB PO SCH (19:48)
[2017-08-02] MEDS: traMADol 50 MG TAB PO PRN (19:48)
[2017-08-02] MEDS ORDERED: ceFAZolin 2 GM/SWFI 2 GM/20 ML SYR IVP SCH (22:00)
[2017-08-02] MEDS ORDERED: NS W/ 20 KCl/L 1,000 ML IV SCH (22:15)
[2017-08-03] MEDS: KETOROLAC 30 MG/1 ML SDV IVP SCH (05:03)
[2017-08-03] MEDS: HEPARIN 5,000 UNIT/0.5 ML SYR SC SCH (05:27)
[2017-08-03 06:01] LABS: INR 2.03 (0.83-1.16)
[2017-08-03 07:32] LABS: PLATELET COUNT 80 10^3/uL (150-400)
[2017-08-03] MEDS: PANTOPRAZOLE SODIUM 40 MG TAB PO SCH (08:16)
[2017-08-03] MEDS: VITAMIN B COMPLEX 1 EA CAP/TAB PO SCH (08:16)
[2017-08-03] MEDS: AMIODARONE HCL 200 MG TAB PO SCH ×2 (08:16→20:00)
[2017-08-03] MEDS: SENNOSIDES/DOCUSATE SODIUM TAB PO SCH ×2 (08:16→19:59)
--- NOTE | 2017-08-03 09:51 | SOAPPROG ---
SOAP Progress Note Assessment/Plan: Assessment: POD#2 AVR with #23 Magna bioprosthesis, transaortic septal myomectomy, debridement of MV, prophylactic AtriClip ligation YASMANI Critical - s/p tissue AVR. Antithrombotic prophylaxis as per rhythm. HOCM with asymmetric septal hypertrophy, mitral MICHAEL and mild MR - Nl mitral fx restored s/p septal myectomy. Care with preload. Calcifications of ant leaflet MV - Eccentric calcifications debrided. No apparent leaflet damage. Antithrombotic prophylaxis as per rhythm. Postoperative paroxysmal atrial fibrillation - Fairly persistent early postop. Assoc with relative hypotension and BP/UOP supported with IVF. Sufficient BP this am to begin metoprolol. Antithrombotic prophylaxis with Coumadin, target INR 2-3, duration TBD. Care with dosing while plt counts depressed. Acute blood loss anemia with thrombocytopenia - Stable. No need for blood or blood product transfusions. Plt count depression likely exacerbated by toradol. Plan: Cont amiodarone 200 mg BID. Start metoprolol tartrate. D/C sq hep. No coumadin today. D/C toradol. Remove A wire and anterior mediastinal drain. Cont inc activity as tolerated. Baseline postop echo on Sat. Dispo - Anticipate home without services next 2-3 days. 08/03/17 09:47 Subjective: Improving appetite and sense of well being. Some wooziness with positional changes. Adequate analgesia. Objective: Vital Signs Temp Pulse Resp BP Pulse Ox 36.7 C 86 18 113/79 98 08/03/17 08:00 08/03/17 08:00 08/03/17 08:00 08/03/17 08:00 08/03/17 08:00 Laboratory Results 08/03/17 07:15 08/03/17 07:15 08/02/17 08/03/17 08/04/17 05:59 05:59 05:59 Intake Total 3211.2 2273.3 Output Total 2240 1280 Balance 971.2 993.3 PT 23.0 SEC (12.0-15.0) H D 08/03/17 05:15 INR 2.03 (0.83-1.16) H 08/03/17 05:15 SR restored this am. BPs > 110. Min suppl O2 req. CXR -> mild pulm vasc congestion, bibasilar atelectasis. CTOP dissipating. Sl decr in plt count. Rapid rise in INR. Physical Exam - Physical Exam General Appearance: alert, no apparent distress Respiratory: lungs clear (grossly), other (blakes x 2 to bulb suction, thin serosang drainage.) Cardiac/Chest: irregularly irregular, other (Sternotomy CDI. A&V wires intact.) Abdomen: non-tender, soft Skin: warm/dry Extremities: other (no visible edema) ICD10 Worksheet Patient Problems: Problems Problem Status Onset Acute blood loss as cause of postoperative anemia Acute Aortic stenosis Acute Caries involving multiple surfaces of tooth Acute HOCM (hypertrophic obstructive cardiomyopathy) Acute S/P AVR (aortic valve replacement) Acute S/P ventricular septal myectomy Acute
[2017-08-03] MEDS: METOPROLOL TARTRATE 25 MG TAB PO SCH ×2 (11:12→20:00)
[2017-08-03] MEDS: MUPIROCIN 2% 22 GM OINT NS SCH (11:13)
--- NOTE | 2017-08-03 14:52 | ASMTCMCOM ---
CM Note CM Note Notes: 08/03/2017 Case Management Note Met w/pt to discuss PT recommendation for 24 hour supervision at home. Pt reports living in a home with his parents Thierry and Corry ([phone]) and his nephew Elio. There is another person paying for a room who is close to the family in the home as well. Pt will have transportation at d/c from family home and help with meals. Case Management d/c poc: Home with family support with follow up as directed. Case Management available if needs change. Date Signed: 08/03/2017 02:51 PM Electronically Signed By:Katerine Brady RN
[2017-08-03] MEDS: traMADol 50 MG TAB PO PRN (18:12)
[2017-08-03] MEDS: ASPIRIN 81 MG CHEWABLE TAB PO SCH ×2 (19:59→22:37)
[2017-08-04] MEDS: traMADol 50 MG TAB PO PRN ×2 (05:50→11:58)
[2017-08-04 06:24] LABS: INR 4.55 (0.83-1.16); PROTIME(PATIENT) 42.6 SEC (12.0-15.0)
--- NOTE | 2017-08-04 08:01 | SOAPPROG ---
SOAP Progress Note Assessment/Plan: Assessment: POD#3 AVR with #23 Magna bioprosthesis, transaortic septal myomectomy, debridement of MV, prophylactic AtriClip ligation YASMANI Critical - s/p tissue AVR. Antithrombotic prophylaxis as per rhythm. HOCM with asymmetric septal hypertrophy, mitral MICHAEL and mild MR - Nl mitral fx restored s/p septal myectomy. Adequate autodiuresis of moderate fluid overload. Care with preload. Calcifications of ant leaflet MV - Eccentric calcifications debrided. No apparent leaflet damage. Antithrombotic prophylaxis as per rhythm. Postoperative paroxysmal atrial fibrillation - Fairly persistent early postop. Assoc with relative hypotension and BP/UOP supported with IVF. Sufficient BP yest to begin metoprolol. Antithrombotic prophylaxis with Coumadin, target INR 2 -3, duration TBD. Care with dosing while plt counts depressed. Acute blood loss anemia with thrombocytopenia - Stable. No need for blood or blood product transfusions. Plt count depression likely exacerbated by toradol. Plan: Cont amiodarone 200 mg BID. Cont metoprolol tartrate 25 mg BID. No coumadin today. Keep pleural drain and Vwires 1 more day. Cont inc activity as tolerated. Baseline postop echo tomorrow. Dispo - Anticipate home without services in 2 days. 08/04/17 07:59 Subjective: Generalized fatigue. Yet to walk a full lap. Improving appetite and IS. Adequate analgesia. +BM. Objective: Vital Signs Temp Pulse Resp BP Pulse Ox 36.7 C 77 10 L 117/89 H 97 08/04/17 07:43 08/04/17 07:43 08/04/17 07:43 08/04/17 07:43 08/04/17 07:43 Laboratory Results 08/04/17 05:40 08/04/17 05:40 08/03/17 08/04/17 08/05/17 05:59 05:59 05:59 Intake Total 2273.3 1643 Output Total 1280 1650 90 Balance 993.3 -7 -90 PT 42.6 SEC (12.0-15.0) H D 08/04/17 05:40 INR 4.55 (0.83-1.16) H 08/04/17 05:40 Holding SR and SBP > 90 on BB. Stable sats on 2 lpm O2. Likely could reduce to 1 lpm. Balanced I/Os. Improving autodiuresis. Wt down 1 kg. Pleural output thin. Platelet count appears to be rebounding. INR cont to climb. Will ck LFTs. Physical Exam - Physical Exam General Appearance: alert, no apparent distress Respiratory: lungs clear, other (celestino to bulb suction, clear mostly serous fluid) Cardiac/Chest: regular rate, rhythm, friction rub, other (Sternotomy CDI. Vwires intact.) Abdomen: non-tender, soft Skin: warm/dry Extremities: other (no visible edema) ICD10 Worksheet Patient Problems: Problems Problem Status Onset Acute blood loss as cause of postoperative anemia Acute Aortic stenosis Acute Caries involving multiple surfaces of tooth Acute HOCM (hypertrophic obstructive cardiomyopathy) Acute S/P AVR (aortic valve replacement) Acute S/P ventricular septal myectomy Acute
[2017-08-04] MEDS: METOPROLOL TARTRATE 25 MG TAB PO SCH ×2 (09:13→20:11)
[2017-08-04] MEDS: PANTOPRAZOLE SODIUM 40 MG TAB PO SCH (09:13)
[2017-08-04] MEDS: AMIODARONE HCL 200 MG TAB PO SCH ×2 (09:13→20:11)
[2017-08-04] MEDS: VITAMIN B COMPLEX 1 EA CAP/TAB PO SCH (09:13)
[2017-08-04] MEDS: ATORVASTATIN CALCIUM 40 MG TAB PO SCH (20:11)
[2017-08-04] MEDS: ASPIRIN 81 MG CHEWABLE TAB PO SCH (20:11)
--- NOTE | 2017-08-05 07:28 | SOAPPROG ---
SOAP Progress Note Assessment/Plan: POD #4: AVR with #23 Magna bioprosthesis, septal myectomy, debridement of MV, AtriClip YASMANI Critical s/p AVR with bioprosthesis - Continue BB - SCDs for DVT prophylaxis - PT/OT - Remaining tube and pacing wire to be removed today HOCM s/p septal myectomy - Will f/u ECHO this morning to re-evaluate LVOT gradient Calcified MV s/p debridement of anterior leaflet - Will f/u ECHO this morning to re-evaluate Acute blood loss anemia - Stable without need for blood product transfusions Paroxysmal post-op atrial fibrillation - Continue BB/amiodarone/Coumadin with INR goal 2-3 Subjective: [place] clammy after morning walk. Has been episodes like this since surgery. Denies pain/SOB. Objective: Vital Signs Temp Pulse Resp BP Pulse Ox 36.8 C 80 16 105/77 97 08/05/17 04:00 08/05/17 04:00 08/05/17 04:00 08/05/17 04:00 08/05/17 04:00 Laboratory Results 08/04/17 05:40 08/04/17 05:40 08/04/17 08/05/17 08/06/17 05:59 05:59 05:59 Intake Total 1643 1050 Output Total 1650 1335 300 Balance -7 -285 -300 PT 42.6 SEC (12.0-15.0) H D 08/04/17 05:40 INR 4.55 (0.83-1.16) H 08/04/17 05:40 Physical Exam - Physical Exam General Appearance: WD/WN, alert, no apparent distress EENT: No scleral icterus (R), No scleral icterus (L) Respiratory: No respiratory distress Cardiac/Chest: regular rate, rhythm Abdomen: non-tender, soft, No distended Skin: normal color, warm/dry Extremities: No pedal edema Neuro/Psych: no motor/sensory deficits, alert, normal mood/affect, oriented x 3 ICD10 Worksheet Patient Problems: Problems Problem Status Onset Acute blood loss as cause of postoperative anemia Acute Aortic stenosis Acute Caries involving multiple surfaces of tooth Acute HOCM (hypertrophic obstructive cardiomyopathy) Acute S/P AVR (aortic valve replacement) Acute S/P ventricular septal myectomy Acute
[2017-08-05 07:56] LABS: INR 3.19 (0.83-1.16); PROTIME(PATIENT) 32.5 SEC (12.0-15.0)
[2017-08-05] MEDS: PANTOPRAZOLE SODIUM 40 MG TAB PO SCH (09:11)
[2017-08-05] MEDS: VITAMIN B COMPLEX 1 EA CAP/TAB PO SCH (09:11)
[2017-08-05] MEDS: AMIODARONE HCL 200 MG TAB PO SCH ×2 (09:11→19:37)
[2017-08-05] MEDS ORDERED: FUROSEMIDE 40 MG/4 ML VIAL IVP ONE (10:16)
[2017-08-05] MEDS ORDERED: POTASSIUM CL 20 MEQ TAB PO ONE (10:16)
[2017-08-05] MEDS: METOPROLOL TARTRATE 25 MG TAB PO SCH ×2 (10:40→19:37)
[2017-08-05] MEDS: ACETAMINOPHEN 325 MG TAB PO PRN (12:50)
--- NOTE | 2017-08-05 15:18 | ECHO ---
[email or web address] [address] Main: [phone] Fax: Transthoracic Echocardiogram Name: EVELIN JOHNSTON MR#: [id number] Study Date: 08/05/2017 Study Time: 08:10 AM Date of : 1965 Age: 52 year(s) Height: 177.8 cm (70 in.) Weight: 79.38 kg (175 lb.) BSA: 1.97 m2 Gender: Male Examination: Echo Indication: s/p septal myomectomy and MV debridement, AVR#23 CE Magna bioprosthesis baseline echo Image Quality: Adequate Contrast: Requested by: Miladys Kenney BP: 136 mmHg/98 mmHg Heart Rate: Rhythm: Indication: s/p septal myomectomy and MV debridement, AVR#23 CE Magna bioprosthesis baseline echo Procedure Staff Slubber Hand: Jojo Bradley Reading Physician: Debra Beavers Requesting Provider: Conclusions: Normal size left ventricle. Moderate concentric LV hypertrophy. No MICHAEL is present. Normal global systolic LV function. EF is 71 %. No regional wall motion abnormality. Normal size right ventricle. Normal RV function. The left atrium is mildly dilated. The right atrium is mildly to moderately dilated. Mild mitral valve regurgitation is present. S/P MV debridement of the anterior leaflet calcification. Anterior leaflet is brightened and mildly thickened with normal function.. The aortic valve is a bioprosthesis. Prosthetic aortic valve gradients are within normal limits. Small, mobile echo noted near the bioprosthesis in the LVOT; possible stitch.. Mild tricuspid regurgitation is present. Right ventricular systolic pressure measures 33mmHg. Compared with 07/23/2017 patient has had septal myectomy and AVR Measurements: Chambers Valvular Assessment AV/MV Valvular Assessment TV/PV Normal Normal Normal Name Value Range Name Value Range Name Value Range IVSd (2D): 1.4 cm (0.6 cm-1.1 AV Vmax: 2.45 m/s (1 m/s-1.7 TR Vmax: 2.63 mm/s ( - ) cm) m/s) TR PGmax: 28 mmHg ( - ) LVDd (2D): 3.9 cm (4.2 cm-5.9 AV maxP mmHg ( - ) syst. PAP: 33 mmHg ( - ) cm) AV meanP mmHg ( - ) Patient: EVELIN JOHNSTON Study Date: 08/05/2017 Page 1 of 2 08:10 AM LVDs (2D): 2.2 cm (2.1 cm-4 MV E Vmax: 0.75 m/s ( - ) cm) MV A Vmax: 0.67 m/s ( - ) LVPWd (2D): 1.3 cm (0.6 cm-1 MV E/A: 1.12 ( - ) cm) LVEF (BP): 71 % (>=55 %) RVDd(2D): 3.3 cm (1.9 cm-3.8 cmmm) Continued Measurements: Chambers Valvular Assessment AV/MV Valvular Assessment TV/PV Name Value Name Value Name Value LADs Lon.8 cm MV DecTime: 236 m/s CVP (est.): 5 mmHg LA Area: 24.9 cm2 MV E' Septal: 0.07 m/s LA Volume: 74 ml MV E/E' Septal: 11.00 LA Volume Index: 37.6 ml/m2 MV E/E' Lateral: 10.10 RA Area: 19.2 cm2 Findings: Left Ventricle: Normal size left ventricle. Moderate concentric LV hypertrophy. No MICHAEL is present. Normal global systolic LV function. EF is 71 %. No regional wall motion abnormality. Unable to assess diastolic dysfunction. Right Ventricle: Normal size right ventricle. Normal RV function. Left Atrium: The left atrium is mildly dilated. Right Atrium: The right atrium is mildly to moderately dilated. Mitral Valve: Mild mitral valve regurgitation is present. No mitral stenosis is present. No MICHAEL is present. S/P MV debridement of the anterior leaflet calcification. Anterior leaflet is brightened and mildly thickened with normal function.. Aortic Valve: The aortic valve is a bioprosthesis. Prosthetic aortic valve gradients are within normal limits. No prosthesis regurgitation. Small, mobile echo noted near the bioprosthesis in the LVOT; possible stitch.. Tricuspid Valve: The tricuspid valve is normal in appearance and function. Mild tricuspid regurgitation is present. Right ventricular systolic pressure measures 33mmHg. Pulmonic Valve: Pulmonary valve not well visualized. Aorta: Aortic root not well visualized.. Pericardium: Trivial pericardial effusion. (No Signature Object) Patient: EVELIN JOHNSTON Study Date: 08/05/2017 Page 2 of 2 08:10 AM [id number]
[2017-08-05] MEDS: ASPIRIN 81 MG CHEWABLE TAB PO SCH (19:37)
[2017-08-05] MEDS: ATORVASTATIN CALCIUM 40 MG TAB PO SCH (19:37)
[2017-08-06 07:11] LABS: INR 1.88 (0.83-1.16); PROTIME(PATIENT) 21.7 SEC (12.0-15.0)
--- NOTE | 2017-08-06 07:36 | SOAPPROG ---
SOAP Progress Note Assessment/Plan: Assessment: POD#5 AVR with #23 Magna bioprosthesis, transaortic septal myomectomy, debridement of MV, prophylactic AtriClip ligation YASMANI Critical - s/p tissue AVR. Antithrombotic prophylaxis as per rhythm. HOCM with asymmetric septal hypertrophy, mitral MICHAEL and mild MR - MICHAEL eliminated s/p septal myectomy. Adequate autodiuresis of moderate fluid overload. Care with preload. Calcifications of ant leaflet MV - Eccentric calcifications debrided. No apparent leaflet damage. Antithrombotic prophylaxis as per rhythm. Postoperative paroxysmal atrial fibrillation - Less persistent after loading amio and starting BB. Antithrombotic prophylaxis with Coumadin, target INR 2-3, duration TBD. Acute blood loss anemia with thrombocytopenia - Stable. No need for blood or blood product transfusions. Plt count rebound noted. Plan: Cont amiodarone 200 mg BID. Inc metoprolol tartrate to 37.5 mg BID. Resume Coumadin. 2.5 mg today. Remove pleural drain. Switch to oral diuretic. Cont inc activity as tolerated. Dispo - Anticipate home without services tomorrow. 08/06/17 07:29 Subjective: Nose congestion and pleuritic pain impacting breathing o/w ok. Improving mobility. Objective: Vital Signs Temp Pulse Resp BP Pulse Ox 36.8 C 86 16 127/86 H 93 08/06/17 04:00 08/06/17 04:00 08/06/17 04:00 08/06/17 04:00 08/06/17 04:00 Laboratory Results 08/05/17 07:30 08/05/17 07:30 08/05/17 08/06/17 08/07/17 05:59 05:59 05:59 Intake Total 1050 1800 Output Total 1335 2215 Balance -285 -415 PT 21.7 SEC (12.0-15.0) H D 08/06/17 05:50 INR 1.88 (0.83-1.16) H 08/06/17 05:50 Cardioresp status stable. Adequate fluid balance. Within 2 kg admit wt. INR no longer supratherapeutic. Physical Exam - Physical Exam General Appearance: alert, no apparent distress Respiratory: crackles (left base o/w CTA), other (celestino to bulb suction, thin mostly serous drainage) Cardiac/Chest: regular rate, rhythm, other (Sternum grossly stable. Sternotomy CDI.) Abdomen: non-tender, soft Skin: warm/dry Extremities: other (no visible edema) ICD10 Worksheet Patient Problems: Problems Problem Status Onset Acute blood loss as cause of postoperative anemia Acute Aortic stenosis Acute Caries involving multiple surfaces of tooth Acute HOCM (hypertrophic obstructive cardiomyopathy) Acute S/P AVR (aortic valve replacement) Acute S/P ventricular septal myectomy Acute
[2017-08-06] MEDS: ACETAMINOPHEN 325 MG TAB PO PRN ×2 (07:49→20:14)
[2017-08-06] MEDS: AMIODARONE HCL 200 MG TAB PO SCH ×2 (09:38→20:11)
[2017-08-06] MEDS: VITAMIN B COMPLEX 1 EA CAP/TAB PO SCH (09:38)
[2017-08-06] MEDS: POTASSIUM CL 20 MEQ TAB PO SCH (09:38)
[2017-08-06] MEDS: FUROSEMIDE 40 MG TAB PO SCH (09:39)
[2017-08-06] MEDS: PANTOPRAZOLE SODIUM 40 MG TAB PO SCH (09:39)
[2017-08-06] MEDS: METOPROLOL TARTRATE 25 MG TAB PO SCH ×3 (09:47→20:11)
[2017-08-06] MEDS: SENNOSIDES/DOCUSATE SODIUM TAB PO PRN ×2 (09:47→20:17)
[2017-08-06] MEDS ORDERED: WARFARIN SODIUM 2.5 MG TAB PO ONE (16:00)
--- NOTE | 2017-08-06 16:36 | ASMTCMCOM ---
CM Note CM Note Notes: 08/06/2017 Case Management Note Reviewed chart. PT recommends home with supervision Case Management d/c poc remains home with family. Case Management available if needs change. Date Signed: 08/06/2017 04:35 PM Electronically Signed By:Katerine Brady RN
[2017-08-06] MEDS: ASPIRIN 81 MG CHEWABLE TAB PO SCH (20:11)
[2017-08-06] MEDS: ATORVASTATIN CALCIUM 40 MG TAB PO SCH (20:11)
[2017-08-07 07:27] VITALS: RESP 14; TEMP 97.6; O2SAT 93
--- NOTE | 2017-08-07 07:48 | SOAPPROG ---
SOAP Progress Note Assessment/Plan: POD #6: AVR with #23 Magna bioprosthesis, septal myectomy, debridement of MV, AtriClip YASMANI Critical s/p AVR with bioprosthesis - Continue BB - SCDs for DVT prophylaxis - PT/OT HOCM s/p septal myectomy - Stable, continue BB Calcified MV s/p debridement of anterior leaflet - Stablr Acute blood loss anemia - Stable without need for blood product transfusions Paroxysmal post-op atrial fibrillation - Continue BB/amiodarone/Coumadin with INR goal 2-3 Disposition - Home today without services Subjective: Feels well. Ready to go home. Objective: Vital Signs Temp Pulse Resp BP Pulse Ox 36.4 C 92 14 128/100 H 93 08/07/17 07:26 08/07/17 07:26 08/07/17 07:26 08/07/17 07:26 08/07/17 07:26 Laboratory Results 08/05/17 07:30 08/07/17 05:30 08/06/17 08/07/17 08/08/17 05:59 05:59 05:59 Intake Total 1800 1275 Output Total 2215 1550 Balance -415 -275 PT REJ 08/07/17 05:30 INR REJ 08/07/17 05:30 Physical Exam - Physical Exam General Appearance: WD/WN, alert, no apparent distress EENT: No scleral icterus (R), No scleral icterus (L) Neck: normal inspection Respiratory: No respiratory distress Cardiac/Chest: regular rate, rhythm Abdomen: non-tender, soft, No distended Skin: normal color, warm/dry Extremities: No pedal edema Neuro/Psych: no motor/sensory deficits, alert, normal mood/affect, oriented x 3 ICD10 Worksheet Patient Problems: Problems Problem Status Onset Acute blood loss as cause of postoperative anemia Acute Aortic stenosis Acute Caries involving multiple surfaces of tooth Acute HOCM (hypertrophic obstructive cardiomyopathy) Acute S/P AVR (aortic valve replacement) Acute S/P ventricular septal myectomy Acute
[2017-08-07] MEDS: POTASSIUM CL 20 MEQ TAB PO SCH (08:00)
[2017-08-07] MEDS: ACETAMINOPHEN 325 MG TAB PO PRN (08:01)
[2017-08-07] MEDS: FUROSEMIDE 40 MG TAB PO SCH (08:01)
[2017-08-07] MEDS: SENNOSIDES/DOCUSATE SODIUM TAB PO PRN (08:01)
[2017-08-07] MEDS: PANTOPRAZOLE SODIUM 40 MG TAB PO SCH (08:02)
[2017-08-07] MEDS: METOPROLOL TARTRATE 25 MG TAB PO SCH (08:02)
[2017-08-07] MEDS: AMIODARONE HCL 200 MG TAB PO SCH (08:02)
[2017-08-07] MEDS: VITAMIN B COMPLEX 1 EA CAP/TAB PO SCH (08:02)
[2017-08-07 08:20] LABS: INR 2.04 (0.83-1.16); PROTIME(PATIENT) 23.1 SEC (12.0-15.0)
[2017-08-07] MEDS ORDERED: METOPROLOL TARTRATE 25 MG TAB PO ONE (09:24)
[2017-08-07 09:48] VITALS: BP 117/80; PULSE 83
--- NOTE | 2017-08-07 10:39 | PDDCSUM ---
Discharge Summary Discharge Summary: ADMISSION DATE: 07/31/17 DISCHARGE DATE: 08/07/17 DISCHARGE DX: 1. Tooth decay 2. Critical aortic stenosis 3. HOCM 4. Mitral valve restriction secondary to calcification 5. Acute blood loss anemia 6. Post-op paroxysmal atrial fibrillation PROCEDURES 07/31/17, Hua Bahena: removal of # 3, 5, 19 teeth 08/01/17, Yuniel Pedroza: AVR with #23 Magna bioprosthesis, extensive debridement of anterior leaflet of mitral valve, septal myectomy, AtriClip YASMANI HOSPITAL COURSE BY PROBLEM LIST 1. Tooth decay - s/p removal of # 3, 5, 19 teeth. 2. Critical aortic stenosis - stable s/p AVR. 3. HOCM - stable s/p septal myectomy. Continue beta-clara. 4. Mitral valve restriction secondary to calcification s/p debridement - stable. 5. Acute blood loss anemia with thrombocytopenia - no need for transfusions 6. Paroxysmal atrial fibrillation - conversion to SR with metoprolol and amiodarone. Thromboprophylaxis with Coumadin, INR goal 2-3, duration pending stability of rhythm. CONDITION Good DISPOSITION Home ACTIVITY Pt was instructed on sternal precautions, activity limitations, and which problems to call Located Within [facility] with. Please see Discharge Plan in chart for specifics. DISCHARGE MEDICATIONS Continue: 1. Aspirin [Aspirin 81mg (*)] 81 mg PO HS 2. Atorvastatin Calcium [Lipitor 40 mg (*)] 40 mg PO HS 3. Herbals/Supplements -Info Only 1 ea PO DAILY 4. Vitamin B Complex [B Complex] 1 each PO DAILY New: 1. Acetaminophen [Tylenol 325mg (*)] 325 - 650 mg PO Q4HRS PRN 2. Amiodarone HCl [Pacerone (*)] 200 mg PO BID 3. Furosemide [Lasix 40 MG (*)] 40 mg PO DAILY 4. Hydrocodone/Acetaminophen [Hydrocodon-Acetaminophen 5-325] 1 tab PO Q6H PRN 5. Metoprolol Tartrate [Lopressor 50 mg (*)] 50 mg PO BID 6. Potassium Cl [Klor-Con 20 meq (*)] 20 meq PO DAILY 7. Warfarin Sodium 2.5 mg PO DAILY AT 4PM PENDING STUDIES/LABS 1. CXR prior to follow-up 2. INR 08/09 at 2:30 pm at [facility] F/U APPOINTMENTS 1. Yuniel Pedroza - 08/13/17, 9:30 AM
[2017-08-07] MEDS ORDERED: FLU VACC QS 2017-18 (3YR+)/PF 0.5 ML SYR (FLUARIX QUAD) IM ONE (11:28)
--- NOTE | 2017-08-07 14:50 | ASDISCHSUM ---
Discharge Information Plan Status:Home with No Needs Medically Cleared to Leave:08/06/2017 Discharge Date:08/07/2017 01:59 PM CM D/C Disposition:Home, Routine, Self-Care ADT D/C Disposition:Home, Routine, Self-Care Projected Discharge Date:08/07/2017 01:59 PM Transportation at D/C:Family Discharge Delay Reason: Follow-Up Date:08/07/2017 01:59 PM Discharge Slot: Final Diagnosis: Placement Information Patient Contact Information Contact Name:PAWEL Relationship:Sister Address: Work Phone: City: [facility] Phone: [facility] Code: Email: Financial Information Financial Class: Primary Plan Desc:[employer]IN Primary Plan Number:[id number] Secondary Plan Desc: Secondary Plan Number: Assessment Information [facility] CM Progress Note CM Note CM Note Notes: 08/03/2017 Case Management Note Met w/pt to discuss PT recommendation for 24 hour supervision at home. Pt reports living in a home with his parents Jose Maria ([phone]) and his nephew Elio. There is another person paying for a room who is close to the family in the home as well. Pt will have transportation at d/c from family home and help with meals. Case Management d/c poc: Home with family support with follow up as directed. Case Management available if needs change. Date Signed: 08/03/2017 02:51 PM Electronically Signed By:Katerine Brady RN [facility] CM Progress Note CM Note CM Note Notes: 08/06/2017 Case Management Note Reviewed chart. PT recommends home with supervision Case Management d/c poc remains home with family. Case Management available if needs change. Date Signed: 08/06/2017 04:35 PM Electronically Signed By:Katerine Brady RN [facility] Length of stay for Answers: 7-13 days current admission Acuity / Level of Answers: No Care: Did the patient have an inpatient admission? # of Emergency department Answers: 1-2 visits in the last 6 months Score: 6 Date Signed: 08/07/2017 02:49 PM Electronically Signed By:Katerine Brady RN Intervention Information
[2017-08-07] MEDS ORDERED: METOPROLOL TARTRATE 50 MG TAB PO SCH (21:00)
== END 2017-08-07 13:59 | disposition home or self-care (01) | DRG 217 ==
LOC: FCATH 07:12 → F2W 09:09 → F2N 08-01 07:45 → F2W 08-02 19:20
PROVIDERS: ADMIT Thoracic Surgery (Cardiothoracic Vascular Surgery); ATTEND Thoracic Surgery (Cardiothoracic Vascular Surgery)
DX: I08.0 Rheumatic disorders of both mitral and aortic valves (principal); I42.1 Obstructive hypertrophic cardiomyopathy; D62 Acute posthemorrhagic anemia; I48.0 Paroxysmal atrial fibrillation; K02.9 Dental caries, unspecified; H34.232 Retinal artery branch occlusion, left eye; E78.5 Hyperlipidemia, unspecified
CPT/HCPCS: 82947-QW; 86870-90; 86905-90; 97116-GP; 97161-GP; 97165-GO; 97530-GO; 97530-GP; 97535-GO; 99001-90; G0008; J0153; J0171; J0282; J0690; J1265; J1644; J1815; J1885; J1940; J2001; J2150; J2250; J2260; J2370; J2405; J2704; J2720; J2765; J2930; J3010; J3490; J7060; P9041; Q9967

== ENCOUNTER → 2017-08-13 | Outpatient (CLI) | payer MEDICAID | LOC: FIMAGING 09:50 | PROVIDERS: ATTEND Thoracic Surgery (Cardiothoracic Vascular Surgery) | DX: Z95.2 Presence of prosthetic heart valve (principal); S22.000D Wedge compression fracture of unspecified thoracic vertebra, subsequent encounter for fracture with routine healing ==

== ENCOUNTER 2017-08-17 22:24 | Emergency (ER) | payer MEDICAID ==
[2017-08-17 22:29] VITALS: TEMP 98.2
--- NOTE | 2017-08-17 22:31 | EDPHY ---
H & P Stated Complaint: heart palpations HPI/ROS: HPI CHIEF COMPLAINT: Palpitations HISTORY OF PRESENT ILLNESS: Patient very pleasant 52-year-old male, he had a recent hospitalization for aortic valve replacement, and mitral valve leaflet scraping, and multiple teeth removed, he presents back to the emergency room tonight as he states that he was going to sleep tonight and he could hear his heartbeat. He states was read the regular but then may be pause for 2nd this did a couple times. He decided come the emergency room to be evaluated. Denies any chest pain or shortness of breath. Denies fatigue. Denies dyspnea on exertion. He states he has been healing very well from his surgery and has no complaints. He states he felt fine today and went to the grocery store went grocery shopping. Walked around was fine. He went to lay down tonight and notices heartbeat. He had no chest pain or shortness of breath. He got a little bit anxious decided come to the emergency room. Here in emergency room appears well nontoxic no acute distress. He has no complaints. He states he otherwise feels fine. He does not feel his heartbeat at this time or here it. He is unsure if he position that he was lying in bed that he could just notice it more frequently. Past Medical History: Significant medical history for aortic stenosis now status post aortic valve replacement, HOCM, mitral valve surgery, poor dentition , proximal AFib on Coumadin Past Surgical History: Recent admission from 07/31 -08/07 for mitral valve surgery. Social History: Denies daily use drugs alcohol tobacco products Family History: Noncontributory ROS REVIEW OF SYSTEMS: A comprehensive 10 point review of systems is otherwise negative aside from elements mentioned in the history of present illness. Exam Constitutional appears well nontoxic no acute distress, triage nursing summary reviewed, vital signs reviewed, awake/alert. Eyes normal conjunctivae and sclera, EOMI, PERRLA. HENT normal inspection, atraumatic, moist mucus membranes, no epistaxis, neck supple/ no meningismus, no raccoon eyes. Respiratory clear to auscultation bilaterally, normal breath sounds, no respiratory distress, no wheezing. Cardiovascular I appreciate a murmur, rate normal, regular rhythm, no murmur, no edema, distal pulses normal. Gastrointestinal soft, non-tender, no rebound, no guarding, normal bowel sounds, no distension, no pulsatile mass. Genitourinary no CVA tenderness. Musculoskeletal no midline vertebral tenderness, full range of motion, no calf swelling, no tenderness of extremities, no meningismus, good pulses, neurovascularly intact. Skin pink, warm, & dry, no rash, skin atraumatic. Neurologic awake, alert and oriented x 3, AAOx3, moves all 4 extremities equally, motor intact, sensory intact, CN II-XII intact, normal cerebellar, normal vision, normal speech. Psychiatric normal mood/affect. Heme/Lymph/Immune no lymphadenopathy. Differential Diagnosis: Includes but is not limited to in a particular order cardiac arrhythmia, acute coronary syndrome, pneumonia, CHF, anxiety Medical Decision Making: Plan for this patient IV establishment, gentle IV hydration, full groundwater monitoring technician obtain EKG, compare EKG to old EKG, chest x-ray , check coags check BNP and re-evaluate. Re-evaluation: EKG interpretation by me on record in [facility] system. Impression time of EKG 2232, sinus rhythm rate of 75 EKG is very stable from previous EKG. Similar morphology however there are Q-waves noted V1 V2 V3 6637: patient's blood work reviewed he does have slightly positive troponin and a BNP of 800+. The patient has no chest pain or shortness of breath. His EKG is nonischemic. I will consult Dr. Pedroza who did his cardiothoracic surgery. I did re-evaluate the patient he has no complaints he states he would like to go home. He has no chest pain or shortness of breath. His chest x-ray is stable. I am not sure what to make of the positive troponin elevated BNP. He has not had no chest pain or shortness of breath. Spoke with Yuniel Mccain, about his patient. Discussed at length his clinical work up in the Emergency Room, including positive troponin, and slightly elevated BNP, chest x-ray that is stable. EKG that does not show acute ischemic event. The patient has no chest pain or shortness of breath would like to go home. Doctor Kasia is fine with him going home. Return precautions discussed with the patient. He understands return emergency room if develops chest pain, shortness of breath, palpitations vomiting or fever does not feel well. Patient understands strict return precautions. 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 aortic valve replacement 2w ago - Social History Smoking Status: Former smoker Constitutional: Initial Vital Signs Temperature (C) 36.8 C 08/17/17 22:26 Heart Rate 79 08/17/17 22:26 Respiratory Rate 18 08/17/17 22:26 Blood Pressure 146/89 H 08/17/17 22:26 O2 Sat (%) 97 08/17/17 22:26 O2 Delivery Mode Room Air Allergies/Adverse Reactions: No Known Allergies Allergy (Verified 07/30/17 17:05) Home Medications: Medication Instructions Recorded Aspirin [Aspirin 81mg (*)] 81 mg PO HS 07/30/17 Atorvastatin Calcium [Lipitor 40 40 mg PO HS 07/30/17 mg (*)] Herbals/Supplements -Info Only 1 ea PO DAILY 07/30/17 Vitamin B Complex [B Complex] 1 each PO DAILY 07/30/17 Acetaminophen [Tylenol 325mg (*)] 325 - 650 mg PO Q4HRS PRN tab 08/07/17 Amiodarone HCl [Pacerone (*)] 200 mg PO BID #60 tab 08/07/17 Hydrocodone/Acetaminophen 1 tab PO Q6H PRN #30 tablet 08/07/17 [Hydrocodon-Acetaminophen 5-325] Metoprolol Tartrate [Lopressor 50 50 mg PO BID #60 tab 08/07/17 mg (*)] Warfarin Sodium 2.5 mg PO DAILY AT 4PM #90 tablet 08/07/17 Medical Decision Making - Data Points Laboratory Results: Laboratory Results 08/17/17 22:45 08/17/17 22:45 Medications Given: Discontinued Medications Sodium Chloride (Ns) 1,000 mls @ 0 mls/hr IV EDNOW ONE; Wide Open PRN Reason: Protocol Stop: 08/17/17 22:33 Last Admin: 08/17/17 22:51 Dose: 1,000 mls Departure - Departure Disposition: Home, Routine, Self-Care Clinical Impression: Palpitations Condition: Good Instructions: Heart Palpitations (ED) Additional Instructions: 1. Return to the emergency room if you develop worsening chest pain shortness of breath fever or vomiting. Or if you have a fast heart rate. Referrals: NONE *PRIMARY CARE P,. [Primary Care Provider] - As per Instructions
[2017-08-17] MEDS ORDERED: NS 1,000 ML IV ONE (22:32)
--- NOTE | 2017-08-17 22:35 | CPEKG ---
Heart Rate: 75 RR Interval: 800 P-R Interval: 180 QRSD Interval: 124 QT Interval: 396 QTC Interval: 443 P [place]: 41 QRS [place]: -9 T Wave [place]: 113 EKG Severity - ABNORMAL ECG - EKG Impression: SINUS RHYTHM EKG Impression: LVH WITH IVCD AND SECONDARY REPOL ABNRM Electronically Signed By: Pauline Perez 20-Aug-2017 06:04:57
[2017-08-17 23:11] LABS: PLATELET COUNT 468 10^3/uL (150-400)
[2017-08-17 23:22] LABS: INR 1.78 (0.83-1.16); PROTIME(PATIENT) 20.8 SEC (12.0-15.0)
[2017-08-17 23:48] VITALS: RESP 16
[2017-08-18 00:22] VITALS: BP 117/86; PULSE 71; O2SAT 95
== END 2017-08-18 00:22 | disposition home or self-care (01) ==
DX: R00.2 Palpitations (principal); E86.9 Volume depletion, unspecified; Z79.01 Long term (current) use of anticoagulants; Z79.82 Long term (current) use of aspirin; Z87.891 Personal history of nicotine dependence

== ENCOUNTER 2018-01-02 12:11 | Emergency (ER) | payer MEDICAID ==
--- NOTE | 2018-01-02 14:00 | EDPHY ---
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 aortic valve replacement 2w ago - Social History Smoking Status: Former smoker Constitutional: Initial Vital Signs Temperature (C) 36.8 C 01/02/18 12:13 Heart Rate 102 H 01/02/18 12:13 Respiratory Rate 16 01/02/18 12:13 Blood Pressure 146/110 H 01/02/18 12:13 O2 Sat (%) 96 01/02/18 12:13 O2 Delivery Mode Room Air Allergies/Adverse Reactions: No Known Allergies Allergy (Verified 07/30/17 17:05) Home Medications: Medication Instructions Recorded Aspirin [Aspirin 81mg (*)] 81 mg PO HS 07/30/17 Atorvastatin Calcium [Lipitor 40 40 mg PO HS 07/30/17 mg (*)] Herbals/Supplements -Info Only 1 ea PO DAILY 07/30/17 Vitamin B Complex [B Complex] 1 each PO DAILY 07/30/17 Acetaminophen [Tylenol 325mg (*)] 325 - 650 mg PO Q4HRS PRN tab 08/07/17 Amiodarone HCl [Pacerone (*)] 200 mg PO BID #60 tab 08/07/17 Hydrocodone/Acetaminophen 1 tab PO Q6H PRN #30 tablet 08/07/17 [Hydrocodon-Acetaminophen 5-325] Metoprolol Tartrate [Lopressor 50 50 mg PO BID #60 tab 08/07/17 mg (*)] Warfarin Sodium 2.5 mg PO DAILY AT 4PM #90 tablet 08/07/17 Medical Decision Making - Diagnostics Imaging Results: Imaging Impressions Head CT 01/02/18 15:22 Impression: No acute intracranial findings. Imaging: Discussed imaging studies w/ call center consultant Radiologist, I viewed and interpreted images myself ED Course/Re-evaluation: CHIEF COMPLAINT: Left-sided facial numbness HISTORY OF PRESENT ILLNESS: The patient is an anticoagulated (Warfarin) 52 y/o male with a history of an aortic valve replacement, ocular melanoma, and a left ophthalmic emboli complaining of left-sided facial numbness onset 6 days ago. The patient is concerned about these symptoms because of his prior medical history. With his prior eye emboli, he presented to the emergency department after half of his vision disappeared. Currently he is having a mild tingling sensation on the left -side of his face that is radiating to his upper face. Denies difficulty walking , writing or eating. Denies headache, chest pain, shortness of breath, abdominal pain, urinary or bowel complaints, fever. REVIEW OF SYSTEMS: A 10 point review of systems was performed and is negative with the exception of the elements mentioned in the history of present illness. PHYSICAL EXAM: HR, BP, O2 Sat, RR. Temp noted General Appearance: Alert, well hydrated, appropriate, and non-toxic appearing. Head: Atraumatic without scalp tenderness or obvious injury Eyes: Pupils equal, round, reactive to light and accommodation, EOMI, no trauma , no injection. Ears: Clear bilaterally, no perforation, normal landmarks Nose: Atraumatic, no rhinorrhea, clear. Throat: There is no erythema or exudates, no lesions, normal tonsils, mucus membranes moist. Neck: Supple, 2+ carotid upstroke, nontender, no lymphadenopathy. Respiratory: No retractions, no distress, no wheezes, and no accessory muscle use. Lungs are clear to auscultation bilaterally. Cardiovascular: Regular rate and rhythm, no murmurs, rubs, or gallops. Bilateral carotid, radial, dorsalis pedis, and posterior tibial pulses intact. Good capillary refill all extremities. Gastrointestinal: Abdomen is soft, nontender, non-distended, no masses, no rebound, no guarding, no peritoneal signs. Musculoskeletal: Normal active ROM of all extremities, atraumatic. Neurological: Alert, appropriate, and interactive. The patient has normal DTRs and non-focal cranial nerves, motor, sensory, and cerebellar exam. Skin: No rashes, good turgor, no nodules on palpation. Past medical history: Ocular Melanoma and Blindness - Right Eye, migraines, left ophthalmic emboli Past surgical history: Aortic valve replacement Family history: Denies Social history: Lives in [place], single, employed DIAGNOSTICS/PROCEDURES/CRITICAL CARE TIME: Brain CT with and without contrast: Negative [place] CTA: Negative Neck CTA: Negative DIFFERENTIAL DIAGNOSIS: The differential diagnosis for the patient's neurologic deficits included but was not limited to peripheral causes, central causes including CVA, TIA, electrolyte abnormalities and dehydration, cardiogenic causes, atypical causes like migraine syndrome. MEDICAL DECISION MAKING: The patient is an anticoagulated (Warfarin) 52 y/o male with a history of an aortic valve replacement, ocular melanoma, and a left ophthalmic emboli presenting with left-sided facial numbness onset 6 days ago. On exam he has minimal subjective dullness on the left side of his face. He does not have any motor deficits. Based on his prior embolic phenomena and aortic replacement, I need to rule out an acute embolic phenomena. Based on his history of ocular melanoma I also need to rule out acute metastases. I-Stat and PTPTT ordered. 1415: Consulted with Dr. Santana, radiologist, regarding patient. Brain MR with and without contrast as well as MRA of the [place] 1434: Patient has a normal I-Stat. 1449: Patient's INR is 1.60, he is subtherapeutic. 1500: Spoke with Dr. Santana, patient cannot have an MRI preformed as he has clips in his right eye. Brain CT with and without contrast, [place] CTA , and neck CTA ordered. 1620: Spoke with Dr. Gooden, patient has normal CT imaging findings. 1627: Reassessed patient and discussed laboratory and imaging findings. I have advised the patient to follow up with a neurologist. I have also discussed INR results and advised him to take an extra dose of Warfarin tonight as he is subtherapeutic. Return precautions provided; patient is comfortable with this plan. - Data Points Laboratory Results: 01/02/18 01/02/18 14:32 13:59 POC Hgb 17.0 gm/dL gm/dL (13.7-17.5) POC Hct 50 % % (40-51) PT 19.2 SEC H SEC (12.0-15.0) INR 1.60 H (0.83-1.16) APTT 28.1 SEC SEC (23.0-38.0) POC Sodium 143 mEq/L mEq/L (135-145) POC Potassium 3.5 mEq/L mEq/L (3.3-5.0) POC Chloride 105 mEq/L mEq/L (97-110) POC BUN 11 mg/dL mg/dL (7-23) POC Creatinine 0.9 mg/dL mg/dL (0.7-1.3) POC Glucose 98 mg/dL mg/dL (70-100) Point of Care Test Results: Chemistry 01/02/18 14:32 POC Sodium 143 mEq/L mEq/L (135-145) POC Potassium 3.5 mEq/L mEq/L (3.3-5.0) POC Chloride 105 mEq/L mEq/L (97-110) POC BUN 11 mg/dL mg/dL (7-23) POC Creatinine 0.9 mg/dL mg/dL (0.7-1.3) POC Glucose 98 mg/dL mg/dL (70-100) ISTAT H&H 01/02/18 14:32 POC Hgb 17.0 gm/dL gm/dL (13.7-17.5) POC Hct 50 % % (40-51) Departure - Departure Disposition: Home, Routine, Self-Care Clinical Impression: Numbness and tingling of left side of face Condition: Good Instructions: Paresthesia (ED) Additional Instructions: 1. Follow up with a neurologist in the next week, you have been referred to Dr. Turner. 2. Return to the Emergency Department for severe headache, vomiting, vision changes, confusion, fever, chest pain, shortness of breath or other concerns. 3. Talk to your primary care physician regarding your Warfarin prescription. You are currently subtherapeutic, so I recommend taking an extra dose tonight only. Referrals: Roland Turner DO [Medical Doctor] - As per Instructions Report Scribed for: Nikhil Pop Report Scribed by: Luci Ortega Date of Report: 01/02/18 Time of Report: 14:01
[2018-01-02 14:38] LABS: INR 1.6 (0.83-1.16); PROTIME(PATIENT) 19.2 SEC (12.0-15.0)
[2018-01-02] MEDS ORDERED: IOPAMIDOL (ISOVUE 370) 100 ML BTL IV ONE (15:24)
[2018-01-02 16:31] VITALS: BP 148/92
== END 2018-01-02 16:54 | disposition home or self-care (01) ==
DX: R20.0 Anesthesia of skin (principal); Z79.01 Long term (current) use of anticoagulants; Z79.82 Long term (current) use of aspirin; Z87.891 Personal history of nicotine dependence
CPT/HCPCS: 82435-PO; 82565-PO; 82947-PO; 84132-PO; 84295-PO; 84520-PO; 85014-PO; Q9967

== ENCOUNTER 2018-02-07 11:24 | Emergency (ER) | payer MEDICAID ==
[2018-02-07 12:26] LABS: INR 3.76 (0.83-1.16); PROTIME(PATIENT) 36.8 SEC (12.0-15.0)
[2018-02-07] MEDS ORDERED: NS 1,000 ML IV ONE (12:33)
[2018-02-07 12:40] LABS: PLATELET COUNT 244 10^3/uL (150-400)
--- NOTE | 2018-02-07 12:41 | EDPHY ---
H & P Time Seen by Provider: 02/07/18 12:29 HPI/ROS: CHIEF COMPLAINT: Fatigue and bleeding from the mouth HISTORY OF PRESENT ILLNESS: Patient is on Coumadin after having had an aortic valve replacement in July at this hospital. He states that he has been fatigued for the last 2 weeks. He wonders if it is because of his change in sleeping habits with a lot of insomnia or that he smokes marijuana and stopped 1 week ago. He has also had some decreased oral intake. The fatigue is General and not better or worse with anything. Today he had a little bleeding from his mouth on his upper left gum on the buccal side. It has since stopped. Does not have bruising or nose bleed or black or bloody stools. REVIEW OF SYSTEMS: Eye: no change in vision. Chronic right eye blindness from melanoma unchanged. ENT: no sore throat Cardiac: no chest pain or syncope Pulmonary: no cough or SOB Abdomen: no vomiting, diarrhea, abdominal pain Musculoskeletal: no back pain Skin: No bruising. Neuro: no headache Constitutional: no fever : no urinary symptoms A comprehensive 10 point review of systems is otherwise negative aside from elements mentioned in the history of present illness. PAST MEDICAL HISTORY: Ocular melanoma, blind in the right eye, migraines, vasectomy, aortic valve replacement as above. Social history: Recently quit marijuana as noted above. 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 General Appearance: Alert and conversant, cooperative. Eyes: Right eye abnormal with pupil scarring, chronic. ENT, Mouth: Normal mucous membranes. No active bleeding from the mouth. No lesions seen in the mouth. Respiratory: Normal respiratory effort, breath sounds equal, lungs are clear to auscultation. Cardiovascular: Regular rate and rhythm. Valve sound heard, tachycardic. Gastrointestinal: Abdomen is soft and non tender. Neurological: Alert, face symmetric, normal motor and sensory in extremities. Skin: Warm and dry, no rashes. No bruising or purpura. Musculoskeletal: No peripheral edema. Psychiatric: Not agitated. Emergency Department course/MDM: Plan CBC chemistry and protime and EKG, normal saline 1 L. 1318: Heart rate around 90, patient feels otherwise normal, likely multifactorial due to sleep habit disturbance and decreased oral intake, possibly due to recent cessation of marijuana. Continue infusing 1 L normal saline, warned to stop taking Coumadin tonight and resume tomorrow with recheck on Saturday. 1411: Heart rate 82 after a L normal saline, likely mild dehydration as well. Smoking Status: Never smoked Constitutional: Initial Vital Signs Temperature (C) 36.6 C 02/07/18 11:25 Heart Rate 116 H 02/07/18 11:25 Respiratory Rate 18 02/07/18 11:25 Blood Pressure 138/102 H 02/07/18 11:25 O2 Sat (%) 98 02/07/18 11:25 O2 Delivery Mode Room Air Allergies/Adverse Reactions: No Known Allergies Allergy (Verified 02/07/18 11:30) Home Medications: Medication Instructions Recorded Aspirin [Aspirin 81mg (*)] 81 mg PO HS 07/30/17 Atorvastatin Calcium [Lipitor 40 40 mg PO HS 07/30/17 mg (*)] Warfarin Sodium 2.5 mg PO DAILY AT 4PM #90 tablet 08/07/17 Medical Decision Making Differential Diagnosis: Differential considered including but not limited to dehydration, metabolic abnormality, anemia, ACS, postoperative valve problem. - Data Points Laboratory Results: Laboratory Results 02/07/18 12:00 02/07/18 12:00 02/07/18 02/07/18 02/07/18 12:00 12:00 12:00 WBC 5.45 10^3/uL 10^3/uL (3.80-9.50) RBC 5.17 10^6/uL 10^6/uL (4.40-6.38) Hgb 15.5 g/dL g/dL (13.7-17.5) Hct 45.3 % % (40.0-51.0) MCV 87.6 fL fL (81.5-99.8) MCH 30.0 pg pg (27.9-34.1) MCHC 34.2 g/dL g/dL (32.4-36.7) RDW 12.3 % % (11.5-15.2) Plt Count 244 10^3/uL 10^3/uL (150-400) MPV 10.8 fL fL (8.7-11.7) Neut % (Auto) 53.5 % % (39.3-74.2) Lymph % (Auto) 28.1 % % (15.0-45.0) [place] % (Auto) 13.6 % H % (4.5-13.0) Eos % (Auto) 3.7 % % (0.6-7.6) Baso % (Auto) 0.9 % % (0.3-1.7) Nucleat RBC Rel Count 0.0 % % (0.0-0.2) Absolute Neuts (auto) 2.92 10^3/uL 10^3/uL (1.70-6.50) Absolute Lymphs (auto) 1.53 10^3/uL 10^3/uL (1.00-3.00) Absolute Monos (auto) 0.74 10^3/uL 10^3/uL (0.30-0.80) Absolute Eos (auto) 0.20 10^3/uL 10^3/uL (0.03-0.40) Absolute Basos (auto) 0.05 10^3/uL 10^3/uL (0.02-0.10) Absolute Nucleated RBC 0.00 10^3/uL 10^3/uL (0-0.01) Immature Gran % 0.2 % % (0.0-1.1) Immature Gran # 0.01 10^3/uL 10^3/uL (0.00-0.10) PT 36.8 SEC H SEC (12.0-15.0) INR 3.76 H (0.83-1.16) Sodium 138 mEq/L mEq/L (135-145) Potassium 3.5 mEq/L mEq/L (3.3-5.0) Chloride 108 mEq/L mEq/L (97-110) Carbon Dioxide 22 mEq/l mEq/l (22-31) Anion Gap 8 mEq/L mEq/L (8-16) BUN 17 mg/dL mg/dL (7-23) Creatinine 0.8 mg/dL mg/dL (0.7-1.3) Estimated GFR > 60 Glucose 115 mg/dL H mg/dL (70-100) Calcium 9.3 mg/dL mg/dL (8.5-10.4) Medications Given: Discontinued Medications Sodium Chloride (Ns) 1,000 mls @ 0 mls/hr IV EDNOW ONE; Wide Open PRN Reason: Protocol Stop: 02/07/18 12:34 Last Admin: 02/07/18 12:59 Dose: 1,000 mls Departure - Departure Disposition: Home, Routine, Self-Care Clinical Impression: Elevated INR Condition: Good Instructions: Elevated INR (ED) Additional Instructions: Do not take your warfarin tonight. Resume normal dosing Saturday and Saturday and then the go to the [facility] on Saturday for recheck. Referrals: Abdullahi Cordero MD [Medical Doctor] - As per Instructions
[2018-02-07 14:12] VITALS: BP 140/92
== END 2018-02-07 14:20 | disposition home or self-care (01) ==
DX: R79.1 Abnormal coagulation profile (principal); Z79.01 Long term (current) use of anticoagulants; Z79.82 Long term (current) use of aspirin